=== PATIENT | female | born 1955 | race American Indian/Alaskan Native ===

== ENCOUNTER 2021-02-09 15:37 | Outpatient (CLI) | payer MEDICARE ==
--- NOTE | 2021-02-09 17:16 | XRay Report ---
BILATERAL KNEE 3 VIEW(S) INDICATION / CLINICAL INFORMATION: ACUTE BILATERAL KNEE PAIN M25.561 M25.562 COMPARISON: None available. FINDINGS: BONES / JOINT(S): No acute fracture or subluxation visualized in either knee. Mild-moderate tricompar tmental right knee degenerative change worst in the lateral tibiofemoral compartment with mild joint space narrowing and prominent marginal osteophytosis. Small proximal patellar enthesophyte on the rig ht. Mild left knee tricompartmental degenerative change, worst in the medial tibiofemoral compartment with mild joint space narrowing and marginal osteophytosis. SOFT TISSUES: No significant abnormality. ADDITIONAL FINDINGS: None. Signer Name: Scooby Shaffer MD Signed: 02/09/2021 5:11 PM Workstation Name: [id number]
--- NOTE | 2021-02-09 17:18 | XRay Report ---
LUMBAR SPINE HISTORY: Back pain, fall COMPARISON: None. TECHNIQUE: 5 view(s) of the lumbar spine obtained. FINDINGS: Vertebrae: There is grade 1 anterolisthesis of L4 on L5. No displaced fracture or significant abnorm ality. Disc Spaces:No significant abnormality. Facet Joints:No significant abnormality. Additional findings: None. IMPRESSION: 1. No acute abnormality of the lumbar spine. 2. Grade 1 anterolisthesis of L4 on L5. Signer Name: Yarelis Rm MD Signed: 02/09/2021 5:14 PM Workstation Name: [id number]
== END 2021-02-09 15:38 | disposition home or self-care (01) ==
LOC: SPVIMAG 15:37
PROVIDERS: ATTEND Internal Medicine
DX: M17.0 Bilateral primary osteoarthritis of knee (principal); M25.762 Osteophyte, left knee; M25.761 Osteophyte, right knee; M47.816 Spondylosis without myelopathy or radiculopathy, lumbar region
CPT/HCPCS: 72110